=== PATIENT | female | born 1980 | race Caucasian/White ===

== ENCOUNTER 2018-10-10 18:32 | Emergency (ER) | payer SELFPAY ==
[~2018-10-10] VITALS: Ht 177.8 cm; Wt 93.2 kg
[2018-10-10 18:40] VITALS: BP 135/82; TEMP 97.4
[2018-10-10] MEDS ORDERED: ZITHROMAX Z PA250 MG PO (18:53)
[2018-10-10 19:04] VITALS: PULSE 98
== END 2018-10-10 19:03 | disposition home or self-care (01) ==
LOC: COL.ER 18:32
DX: J20.9 Acute bronchitis, unspecified (principal)

== ENCOUNTER 2019-05-24 16:22 | Emergency (ER) | payer SELFPAY ==
[~2019-05-24] VITALS: Ht 177.8 cm; Wt 90.9 kg
[~2019-05-24 16:22] MED LIST: ZITHROMAX Z PA250 MG PO
[2019-05-24 16:57] VITALS: BP 135/84; TEMP 98.1
[2019-05-24 18:49] VITALS: PULSE 80
== END 2019-05-24 18:49 | disposition home or self-care (01) ==
LOC: COL.ER 16:22
DX: S09.90XA Unspecified injury of head, initial encounter (principal); R40.2412 Glasgow coma scale score 13-15, at arrival to emergency department; W22.8XXA Striking against or struck by other objects, initial encounter; Y92.59 Other trade areas as the place of occurrence of the external cause
CPT/HCPCS: J1200; J1885; J2765